=== PATIENT | female | born 1940 | race Caucasian/White ===

== ENCOUNTER 2017-09-10 08:00 | Outpatient (CLI) | payer MEDICARE, BC ==
[2015-07-08 06:23] VITALS: BMI 39.3
[~2017-09-10 08:00] MED LIST: HCTZ25 MG PO; HYDROCODONE-APA1 TAB PO; MULTIPLE VITAMI1 TA1 PO; NORVASC2.5 MG PO; TOPROL XL100 MG PO; VOLTAREN75 MG PO; ZESTRIL40 MG PO
== END 2017-09-10 12:19 | disposition home or self-care (01) ==
LOC: D.MAMMO 08:00
DX: Z12.31 Encounter for screening mammogram for malignant neoplasm of breast (principal)

== ENCOUNTER → 2017-09-26 19:46 | Outpatient (CLI) | payer MEDICARE, BC ==
[2015-07-08 06:23] VITALS: BMI 39.3
== END | disposition home or self-care (01) ==
LOC: D.MAMMO 14:30
DX: R92.8 Other abnormal and inconclusive findings on diagnostic imaging of breast (principal)